=== PATIENT | male | born 1990 | race Caucasian/White ===

== ENCOUNTER 2017-06-11 06:51 | Emergency (ER) | payer SELFPAY ==
[2017-06-11] MEDS ORDERED: NORMAL SALINE 1,000 ML IV ONE (07:21)
--- NOTE | 2017-06-11 07:26 | ERNOTE ---
<Tanner Conroy - Last Filed: 06/11/17 07:40> Medical Problem HPI - Narrative Date of Service: 06/11/17 - General Chief Complaint: General Assessment Time Seen by Provider: 06/11/17 07:15 Source: patient, family Exam Limitations: no limitations - Immun/Allergies/Home Medications Allergies/Adverse Reactions: Allergies No Known Allergies Allergy (Verified 06/11/17 07:01) Home Medications: HOME MEDICATIONS NK [No Home Medication] 06/11/17 [Last Taken Unknown] - History of Present History Narrative: patient has had cough for one week, got up to go to work and passed out and hit head, brief loss of consciousness Timing: constant, getting worse Severity: moderate Modifying Factors - (Improves): Present: other - nothing Review of Systems - Narrative Narrative: unremarkable - Review of Systems Constitutional: Present: See HPI, weakness, fatigue, malaise EYE: Present: no symptoms reported ENT: Present: nose pain, nose congestion, nasal drainage Respiratory: Present: shortness of breath, cough Cardiology: Present: chest pain Gastrointestinal/Abdominal: Present: no symptoms reported Genitourinary: Present: no symptoms reported Musculoskeletal: Present: no symptoms reported Skin: Present: no symptoms reported Neurological: Present: no symptoms reported Endocrine: Present: no symptoms reported Hematologic/Lymphatic: Present: no symptoms reported Psych: Present: no symptoms reported All Other Systems: All systems neg except as marked - Narrative Narrative: unremarkable - Patient's Past Medical History Patient History - Medical: No pertinent hx Patient History - Cardiac/Respiratory: No pertinent hx Patient History - Cancer: No Hx of Cancer Patient History - Surgical Procedures: T & A Patient History - Other: None - Family History Family History:: no untoward family reactions to anesthesia, no familial bleeding tendencies, no family history of clotting disorders, no family history of premature - Social History Living Situations: home Abuse History: No History of abuse Psych History: No pertinent hx Does anyone smoke in the home?: No Smoking Status: Never smoker Have you smoked in the past 12 months: No Do you dip or chew tobacco: No Patient requests Smoking Cessation Consult: No Initiate information on Smoking Cessation: No Alcohol Use: none Drug Use: none Physical Exam - Physical Exam General Appearance: Present: moderate distress Head Exam: Present: normal inspection, no evidence of injury Eye Exam: Normal inspection: bilateral, PERRL: bilateral, EOMI: bilateral Ears, Nose, Throat: Present: nasal congestion, sinus pain/drainage Neck: Present: normal inspection, nontender Respiratory: Present: no respiratory distress, no accessory muscle use, rales, rhonchi Cardiovascular/Chest: Present: regular rate, rhythm, no murmur, normal peripheral pulses Peripheral Pulses: N=norm/S=strong/W=weak/B=bound/A=absent: Carotid (R): Normal , Carotid (L): Normal, Radial (R): Normal, Radial (L): Normal, Femoral (R): Normal, Femoral (L): Normal, Dorsalis-pedis (R): Normal, Dorsalis-pedis (L): Normal Gastrointestinal/Abdominal: Present: normal bowel sounds, nontender, nondistended, soft Back Exam: Present: vertebral tenderness - thoracic and lumbar region Extremity Exam: Present: normal inspection, non-tender, normal range of motion, no edema Neurological Exam: Present: alert, oriented, normal mood/affect, no motor/ sensory deficits DTR: N=norm/NB=norm/brisk/A=abs/DD=dull/dimin/HC=hyperactive: Bicep (R): Normal , Bicep (L): Normal, Tricep (R): Normal, Tricep (L): Normal, Knee (R): Normal, Knee (L): Normal, Ankle (R): Normal, Ankle (L): Normal Skin Exam: Present: normal color, warm/dry Lymphatic Exam: Present: no adenopathy ED Progress - Vital Signs Patient's Vital Signs:: I have reviewed the patient's vital signs. Vital Signs: Vital Signs 06/11/17 06:54 Temperature 36.5 C Pulse Rate 118 H Respiratory 12 Rate Blood Pressure 127/84 O2 Sat by Pulse 97 Oximetry - Progress/Reassessment Chief Complaint: General Assessment - Transfer of Care Physician Sign Out: Tanner Conroy Receiving Physician: Gracy Trivedi Departure Clinical Impression: Influenza A, Vasovagal episode - Departure Disposition: Home self-care Condition: Good Instructions: Influenza, Adult, [id number], Vasovagal Syncope, Adult, Form - Excuse from Work, School, or Physical Activity Additional Instructions: drink plenty of fluids take ibuprofen four tablets three times a day as needed for fever and aches get up slowly from laying down and sitting call the clinic for follow up as needed Referrals: Oscar Jarquin MD [Staff Physician] - <Gracy Trivedi - Last Filed: 06/11/17 08:59> Medical Problem HPI - General Source: patient ED Progress - Results and Orders Patient's Lab Results:: I have reviewed the patient's lab results. - Vital Signs Patient's Vital Signs:: I have reviewed the patient's vital signs. Vital Signs: Vital Signs 06/11/17 06/11/17 06/11/17 06:54 07:43 08:05 Temperature 36.5 C Pulse Rate 118 H 118 H 97 Respiratory 12 12 Rate Blood Pressure 127/84 124/82 O2 Sat by Pulse 97 100 Oximetry - X-Ray X-Ray #1 X-Ray: chest - no acute Interpretation: Reviewed by me X-Ray #2 X-Ray: thoracic - no acute Interpretation: Reviewed by me X-Ray #3 X-Ray: lumbosacral - disc disease Interpretation: Reviewed by me - CT/Ultrasound CT/Ultrasound Narrative: CT head: no acute intracranial findings - Progress/Reassessment Progress Note-Subjective: 06/11/17 08:56 discussed test results and plan with patient and fiance, offered ibuprofen, patient will take own patient prefers oral hydration over IV fluids
[2017-06-11 07:45] LABS: Hematocrit 41.6 % (42.0-52.0); Hemoglobin 14.5 gm/dL (13.5-18.0); Mean Cell Volume 81.6 fl (78-100); Mean Corpuscular Hemoglobin 28.4 pg (27-31); Mean Corpuscular Hgb Conc 34.9 g/dl (32-36); Mean Platelet Volume 9.6 fl (6.0-9.5); Neutrophil # 6.5 K/mm3 (1.3-6.0); Platelet Count 229 K/mm3 (150-450); Red Cell Distribution Width 13.3 % (11.5-14.0); White Blood Count 9.2 K/mm3 (4.0-10.5)
[2017-06-11 08:02] LABS: ALT 23 U/L (19-67); AST 21 U/L (0-48); Alkaline Phosphatase * 81 U/L (50-170); Anion Gap 14.8 mmol/L (6.8-13.8); Bilirubin, Total 0.5 mg/dL (0.0-1.1); Blood Urea Nitrogen 10 mg/dL (6-23); Ca. Corrected For Albumin 8.5 mg/dL (8.4-10.2); Calcium * 8.8 mg/dL (7.9-10.9); Carbon Dioxide 23.5 mmol/L (24-32.6); Chloride 100 mmol/L (97-106); Glucose * 110 mg/dL (70-110); Potassium 4.3 mmol/L (3.4-4.6); Sodium 134 mmol/L (132-142); Total Protein 8.5 gm/dL (6.2-8.2)
[2017-06-11 08:09] LABS: Troponin I Less than 0.017 ng/ml (0.00-0.10)
[2017-06-11 08:47] VITALS: BP 128/56
== END 2017-06-11 09:04 | disposition home or self-care (01) ==
LOC: ER 06:51
DX: J10.1 Influenza due to other identified influenza virus with other respiratory manifestations; R55 Syncope and collapse